=== PATIENT | male | born 1960 | race Caucasian/White ===

== ENCOUNTER 2017-04-20 21:43 | Emergency (ER) | payer OTHER ==
[~2017-04-20] VITALS: Ht 167.6 cm; Wt 92.0 kg
[~2017-04-20 21:43] MED LIST: ALBU8I INH; MOTR200T PO; OMEP20TA39 PO; PROM25TA5 PO; RANI150 PO; ZOFR4TAB3 PO
[2017-04-20 21:44] VITALS: BP 152/103; PULSE 94; RESP 16; TEMP 98.6; O2SAT 96
[2017-04-20] MEDS ORDERED: SIMV10TA PO (23:50)
[2017-04-21] MEDS ORDERED: RESP: ALBUTEROL 2.5 MG/IPRATROPIUM 0.5 MG NEB (SCH) NEB ONE
--- NOTE | 2017-04-21 00:10 | PD ---
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 NO ALLEVIATING FACTORS, AGGRAVATED BY MOVEMENT PFSH Past Medical History Arthritis: No Asthma: Yes Autoimmune Disease: No Blood Disorders: No Anxiety: Yes Depression: No Heart Rhythm Problems: No Cancer: No Cardiovascular Problems: Yes High Cholesterol: Yes Chest Pain: No Congestive Heart Failure: No COPD: Yes Cerebrovascular Accident: No Diabetes: No Diminished Hearing: No Endocrine: No Gastrointestinal Disorders: Yes (gastroparesis, PANCREATITIS) GERD: Yes Glaucoma: No Genitourinary: No Headaches: No Hepatitis: Yes (HEP 1977) Hiatal Hernia: No Hypertension: No Immune Disorder: No Implanted Vascular Access Dvce: No Kidney Stones: No Musculoskeletal: No Neurologic: No Psychiatric: Yes Respiratory: Yes Myocardial Infarction: No Renal Failure: Yes Seizures: No Sleep Apnea: No Thyroid Disease: No Ulcer: No PNEUMOCCOCAL Vaccine (Year): 2 Past Surgical History Abdominal Surgery: No AICD: No Appendectomy: Yes () Cardiac Surgery: No Ear Surgery: No Eye Surgery: No Genitourinary Surgery: No Gynecologic Surgery: No Oral Surgery: No Pacemaker: No Thoracic Surgery: No Other Surgery: Yes Social History Alcohol Use: No (QUIT 2012) Tobacco Use: Yes (1 PPD) Substance Use: No Allergies-Medications (Allergen,Severity, Reaction): Coded Allergies: lactose (Unverified Allergy, Severe, Nausea/Vomiting, 04/20/17) Reported Meds & Prescriptions Reported Meds & Active Scripts Active Ventolin Hfa (Albuterol Sulfate) 8 Gm Aero 2 Puff INH BID * SHAKE WELL BEFORE USE * Reported Simvastatin 10 Mg Tab 10 Mg PO DAILY Review of Systems Except as stated in HPI: all other systems reviewed are Neg Musculoskeletal: Positive: Myalgias, Cramping Physical Exam Narrative GENERAL: SKIN: Warm and dry. HEAD: Atraumatic. Normocephalic. EYES: Pupils equal and round. No scleral icterus. No injection or drainage. ENT: No nasal bleeding or discharge. Mucous membranes pink and moist. NECK: Trachea midline. No JVD. CARDIOVASCULAR: Regular rate and rhythm. RESPIRATORY: No accessory muscle use. Clear to auscultation. Breath sounds equal bilaterally. GASTROINTESTINAL: Abdomen soft, non-tender, nondistended. MUSCULOSKELETAL: Extremities without clubbing, cyanosis, or edema. No obvious deformities. NEUROLOGICAL: Awake and alert. No obvious cranial nerve deficits. Motor grossly within normal limits. Five out of 5 muscle strength in the arms and legs. Normal speech. PSYCHIATRIC: Appropriate mood and affect; insight and judgment normal. Data Data Last Documented VS Vital Signs Date Time Temp Pulse Resp B/P (MAP) Pulse Ox O2 Delivery O2 Flow Rate FiO2 04/21/17 00:16 97 21 04/20/17 21:44 98.6 94 16 152/103 (119) Room Air Orders Orders Complete Blood Count With Diff (04/20/17 23:50) Comprehensive Metabolic Panel (04/20/17 23:50) Creatine Kinase (Cpk) (04/20/17 23:50) Lipase (04/20/17 23:50) Thyroid Stimulating Hormone (04/20/17 23:50) Chest, Single Ap (04/20/17 23:50) Sodium Chlor 0.9% 1000 Ml Inj (Ns 1000 M (04/21/17 00:00) Albuterol-Ipratropium Neb (Duoneb Neb) (04/21/17 00:00) Ondansetron Odt (Zofran Odt) (04/21/17 00:30) Electrocardiogram (04/21/17 00:29) Ckmb (Isoenzyme) Profile (04/21/17 00:29) Troponin I (04/21/17 00:29) Lipase (04/21/17 00:29) CKMB (04/20/17 23:24) CKMB% (04/20/17 23:24) Troponin I (04/21/17 02:49) Sodium Chlor 0.9% 1000 Ml Inj (Ns 1000 M (04/21/17 03:15) Basic Metabolic Panel (Bmp) (04/21/17 04:05) CKMB (04/21/17 04:05) CKMB% (04/21/17 04:05) Sodium Chlor 0.9% 1000 Ml Inj (Ns 1000 M (04/21/17 06:00) Labs Laboratory Tests Test 04/20/17 23:24 04/21/17 04:05 White Blood Count 13.8 TH/MM3 Red Blood Count 5.80 MIL/MM3 Hemoglobin 17.4 GM/DL Hematocrit 50.2 % Mean Corpuscular Volume 86.6 FL Mean Corpuscular Hemoglobin 30.0 PG Mean Corpuscular Hemoglobin Concent 34.7 % Red Cell Distribution Width 13.7 % Platelet Count 310 TH/MM3 Mean Platelet Volume 9.0 FL Neutrophils (%) (Auto) 77.8 % Lymphocytes (%) (Auto) 15.2 % Monocytes (%) (Auto) 5.5 % Eosinophils (%) (Auto) 0.6 % Basophils (%) (Auto) 0.9 % Neutrophils # (Auto) 10.7 TH/MM3 Lymphocytes # (Auto) 2.1 TH/MM3 Monocytes # (Auto) 0.8 TH/MM3 Eosinophils # (Auto) 0.1 TH/MM3 Basophils # (Auto) 0.1 TH/MM3 CBC Comment DIFF FINAL Differential Comment Blood Urea Nitrogen 40 MG/DL 35 MG/DL Creatinine 3.23 MG/DL 2.18 MG/DL Random Glucose 154 MG/DL 152 MG/DL Total Protein 10.0 GM/DL Albumin 5.0 GM/DL Calcium Level 10.1 MG/DL 8.2 MG/DL Alkaline Phosphatase 123 U/L Aspartate Amino Transf (AST/SGOT) 25 U/L Alanine Aminotransferase (ALT/SGPT) 38 U/L Total Bilirubin 0.7 MG/DL Sodium Level 137 MEQ/L 141 MEQ/L Potassium Level 4.7 MEQ/L 4.1 MEQ/L Chloride Level 99 MEQ/L 107 MEQ/L Carbon Dioxide Level 26.9 MEQ/L 26.0 MEQ/L Anion Gap 11 MEQ/L 8 MEQ/L Estimat Glomerular Filtration Rate 20 ML/MIN 31 ML/MIN Total Creatine Kinase 312 U/L 244 U/L Creatine Kinase MB 3.7 NG/ML 2.7 NG/ML Creatine Kinase MB % 1.2 % Troponin I LESS THAN 0.02 NG/ML LESS THAN 0.02 NG/ML Lipase 115 U/L 91 U/L Thyroid Stimulating Hormone 3rd Gen 2.360 uIU/ML MDM Medical Decision Making Medical Screen Exam Complete: Yes Emergency Medical Condition: Yes Medical Record Reviewed: Yes Differential Diagnosis DEHYDRATION V RHABDO V RENAL DZ Narrative Course PATIENT WAS FOUND IN PRERENAL AZOTEMIA FROM DEHYDRATION, WHICH RESPONDED WELL TO IVF HYDRATION. ADVISED TO REST AND HYDRATE AND NOT WORK FOR AT LEAST THE NEXT 36HRS AND TO INSTEAD CONTINUE HYDRATING. AND PATIENT AWARE OF RECCOMENDATIONS AND WILL FOLLOW IT. Diagnosis Primary Impression: Dehydration, moderate Additional Impression: Prerenal azotemia Patient Instructions: Dehydration (ED), General Instructions Disposition: 01 DISCHARGE HOME Condition: Stable Hermilo Forte MD Apr 21, 2017 00:10
[2017-04-21 00:16] VITALS: O2SAT 97
[2017-04-21] MEDS ORDERED: ONDANSETRON ODT 4 MG TAB PO ONE (00:30)
--- NOTE | 2017-04-21 00:44 | RADRPT ---
EXAM DATE/TIME: 04/21/2017 00:25 [facility] COMPARISON: CHEST SINGLE AP, March 12, 2016, 14:18. INDICATIONS : Short of breath. MEDICAL HISTORY : Chronic obstructive pulmonary disease. SURGICAL HISTORY : None. ENCOUNTER: Initial ACUITY: 1 day PAIN SCORE: 0/10 LOCATION: Bilateral chest FINDINGS: A single view of the chest demonstrates the lungs to be symmetrically aerated without evidence of mas s, infiltrate or effusion. The cardiomediastinal contours are unremarkable. Osseous structures are intact. CONCLUSION: No acute disease. Joao Gee MD on April 21, 2017 at 0:40 Board Certified Radiologist. This report was verified electronically.
[2017-04-21 00:55] LABS: AUTOMATED NEUTROPHIL # 10.7 TH/MM3 (1.8-7.7); BASOPHIL # 0.1 TH/MM3 (0-0.2); BASOPHIL % 0.9 % (0.0-2.0); EOSINOPHIL # 0.1 TH/MM3 (0-0.4); EOSINOPHIL % 0.6 % (0.0-4.0); HEMATOCRIT 50.2 % (39.0-51.0); HEMO FLAGS DIFF FINAL; LYMPH % 15.2 % (9.0-44.0); LYMPHOCYTE # 2.1 TH/MM3 (1.0-4.8); MEAN CELL VOLUME 86.6 FL (80.0-100.0); MEAN CORPUSCULAR HGB CONC 34.7 % (32.0-36.0); MONO % 5.5 % (0.0-8.0); NEUT % 77.8 % (16.0-70.0); PLATELET COUNT 310 TH/MM3 (150-450); RED CELL DISTRIBUTION WIDTH 13.7 % (11.6-17.2); WHITE BLOOD COUNT 13.8 TH/MM3 (4.0-11.0)
[2017-04-21 00:57] LABS: ANION GAP 11 MEQ/L (5-15); AST (GOT) 25 U/L (15-37); BICARBONATE 26.9 MEQ/L (21.0-32.0); BLOOD UREA NITROGEN 40 MG/DL (7-18); CHLORIDE 99 MEQ/L (98-107); GLOMERULAR FILTRATION RATE 20 ML/MIN (>89); POTASSIUM 4.7 MEQ/L (3.5-5.1); SODIUM (NA) 137 MEQ/L (136-145)
[2017-04-21 01:08] LABS: ALKALINE PHOSPHATASE 123 U/L (45-117); ALT (GPT) 38 U/L (12-78); CREATINE KINASE 312 U/L (39-308); TOTAL BILIRUBIN ADULT 0.7 MG/DL (0.2-1.0)
[2017-04-21 01:20] LABS: CKMB 3.7 NG/ML (0.5-3.6)
[2017-04-21] MEDS ORDERED: SODIUM CHLOR 0.9% 1000 ML INJ 1,000 ML IV ONE ×3 (03:15→06:00)
[2017-04-21 04:37] LABS: ANION GAP 8 MEQ/L (5-15); BLOOD UREA NITROGEN 35 MG/DL (7-18); CHLORIDE 107 MEQ/L (98-107); CREATINE KINASE 244 U/L (39-308); GLOMERULAR FILTRATION RATE 31 ML/MIN (>89); POTASSIUM 4.1 MEQ/L (3.5-5.1); SODIUM (NA) 141 MEQ/L (136-145)
[2017-04-21 05:03] LABS: CKMB 2.7 NG/ML (0.5-3.6)
[2017-04-21 07:18] VITALS: BP 150/80; PULSE 80; RESP 18; O2SAT 97
[2017-04-21] MEDS ORDERED: PROM25TA10 PO (08:03)
--- NOTE | 2017-04-21 17:08 | EKG ---
Date Performed: 04/21/2017 Time Performed: 01:14:26 PTAGE: 56 years EKG: Sinus rhythm NONSPECIFIC T-WAVE ABNORMALITY BORDERLINE ECG Since PREVIOUS TRACING , no significant change noted PREVIOUS TRACIN03/12/2016 14.17 DOCTOR: Nereida Rocha Interpretating Date/Time 04/21/2017 17:07:35
== END 2017-04-21 08:36 | disposition home or self-care (01) ==
LOC: NEPE 21:43
DX: E86.0 Dehydration (principal); R79.89 Other specified abnormal findings of blood chemistry; R25.2 Cramp and spasm; R94.31 Abnormal electrocardiogram [ECG] [EKG]; J44.9 Chronic obstructive pulmonary disease, unspecified; E78.00 Pure hypercholesterolemia, unspecified; K31.84 Gastroparesis; K85.90 Acute pancreatitis without necrosis or infection, unspecified; K21.9 Gastro-esophageal reflux disease without esophagitis
CPT/HCPCS: 71010; 80048; 80053; 82550; 82552; 83690; 84443; 84484; 85025; 93005; 94664; 99285; J7030

== ENCOUNTER 2017-04-23 08:22 | Emergency (ER) | payer OTHER ==
[~2017-04-23] VITALS: Ht 167.6 cm; Wt 90.0 kg
[~2017-04-23 08:22] MED LIST changes: -MOTR200T PO; -OMEP20TA39 PO; +PROM25TA10 PO; -PROM25TA5 PO; -RANI150 PO; +SIMV10TA PO; -ZOFR4TAB3 PO
[2017-04-23 08:23] VITALS: BP 128/95; PULSE 74; RESP 15; TEMP 99.2; O2SAT 99
[2017-04-23] MEDS ORDERED: SODIUM CHLOR 0.9% 1000 ML INJ 1,000 ML IV ONE ×2 (08:56)
[2017-04-23] MEDS ORDERED: ONDANSETRON HCL 4 MG/2 ML VIAL IV PUSH ONE (09:00)
[2017-04-23] MEDS ORDERED: SODIUM CHLORIDE 0.9% FLUSH 10 ML FLUSH IVF PRN (09:00)
--- NOTE | 2017-04-23 09:04 | PD ---
HPI . Vomiting Chief Complaint: GI Complaint Time Seen by Provider: 08:49 Travel History International Travel<30 days: No Contact w/Intl Traveler<30days: No Traveled to known affect area: No History of Present Illness HPI This patient presents with a chief complaint of persistent vomiting. The patient reports that he was seen here on 04/21 for same is diagnosed with dehydration and acute kidney failure. He states that he was treated with IV fluids and subsequently discharged home. Despite this, his emesis has persisted. He estimates that he has had 10-12 bottles of water since his discharge 2 days ago and that he is vomited each time he drank a bottle of water. He reports decreased urinary output. He states that his vomiting is now associated with some mild mid abdominal pain which she feels is secondary to the active vomiting. Patient reports that he is actually had intermittent problems like this for years. At his initial presentation 2 days ago, his symptoms were felt to be secondary to heat exhaustion. He works as a manager shift. He has not been working the past couple of days but his symptoms have persisted. PFSH Past Medical History Arthritis: No Asthma: Yes Autoimmune Disease: No Blood Disorders: No Anxiety: Yes Depression: No Heart Rhythm Problems: No Cancer: No Cardiovascular Problems: Yes High Cholesterol: Yes Chest Pain: No Congestive Heart Failure: No COPD: Yes Cerebrovascular Accident: No Diabetes: No Diminished Hearing: No Endocrine: No Gastrointestinal Disorders: Yes (gastroparesis, PANCREATITIS) GERD: Yes Glaucoma: No Genitourinary: No Headaches: No Hepatitis: Yes (HEP 1977) Hiatal Hernia: No Hypertension: No Immune Disorder: No Implanted Vascular Access Dvce: No Kidney Stones: No Musculoskeletal: No Neurologic: No Psychiatric: Yes Respiratory: Yes Myocardial Infarction: No Renal Failure: Yes Seizures: No Sleep Apnea: No Thyroid Disease: No Ulcer: No Tetanus Vaccination: Unknown Influenza Vaccination: Yes PNEUMOCCOCAL Vaccine (Year): 2 ?: Not Past Surgical History Abdominal Surgery: No AICD: No Appendectomy: Yes () Cardiac Surgery: No Ear Surgery: No Eye Surgery: No Genitourinary Surgery: No Gynecologic Surgery: No Oral Surgery: No Pacemaker: No Thoracic Surgery: No Other Surgery: Yes Social History Alcohol Use: No (QUIT 2012) Tobacco Use: No (QUIT A YEAR AGO) Substance Use: No Allergies-Medications (Allergen,Severity, Reaction): Coded Allergies: lactose (Unverified Allergy, Severe, Nausea/Vomiting, 04/20/17) Reported Meds & Prescriptions Reported Meds & Active Scripts Active Phenergan (Promethazine HCl) 25 Mg Tablet 25 Mg PO Q6H PRN Ventolin Hfa (Albuterol Sulfate) 8 Gm Aero 2 Puff INH BID * SHAKE WELL BEFORE USE * Reported Simvastatin 10 Mg Tab 10 Mg PO DAILY Review of Systems Except as stated in HPI: all other systems reviewed are Neg General / Constitutional: No: Fever, Chills Gastrointestinal: Positive: Nausea, Vomiting, Abdominal Pain, No: Diarrhea Genitourinary: Positive: Decreased Urinary Output Physical Exam Narrative GENERAL: This patient is awake and alert and does not appear to be in any acute distress. SKIN: warm/dry. No rashes. HEAD: Normocephalic. Atraumatic. EYES: Pupils equal and round. No scleral icterus. No injection or drainage. ENT: No nasal bleeding or discharge. Mucous membranes pink and moist. NECK: Trachea midline. Full range of motion without pain.. CARDIOVASCULAR: Regular rate and rhythm. Heart sounds are normal. RESPIRATORY: No accessory muscle use. Clear to auscultation. Breath sounds equal bilaterally. GASTROINTESTINAL: Abdomen soft. Nontender. Bowel sounds present. Nondistended. MUSCULOSKELETAL: No obvious deformities. NEUROLOGICAL: Awake and alert. No obvious cranial nerve deficits. Motor grossly within normal limits. Normal speech. PSYCHIATRIC: Appropriate mood and affect; insight and judgment normal. Data Data Last Documented VS Vital Signs Date Time Temp Pulse Resp B/P (MAP) Pulse Ox O2 Delivery O2 Flow Rate FiO2 04/23/17 08:50 18 04/23/17 08:23 99.2 74 128/95 (106) 99 Orders Orders Complete Blood Count With Diff (04/23/17 08:56) Basic Metabolic Panel (Bmp) (04/23/17 08:56) Iv Access Insert/Monitor (04/23/17 08:56) Ondansetron Inj (Zofran Inj) (04/23/17 09:00) Sodium Chlor 0.9% 1000 Ml Inj (Ns 1000 M (04/23/17 08:56) Sodium Chlor 0.9% 1000 Ml Inj (Ns 1000 M (04/23/17 08:56) Sodium Chloride 0.9% Flush (Ns Flush) (04/23/17 09:00) Prochlorperazine Inj (Compazine Inj) (04/23/17 10:00) Diphenhydramine Inj (Benadryl Inj) (04/23/17 10:00) Labs Laboratory Tests Test 04/23/17 09:05 04/23/17 09:45 Blood Urea Nitrogen 16 MG/DL Creatinine 1.10 MG/DL Random Glucose 100 MG/DL Calcium Level 9.1 MG/DL Sodium Level 135 MEQ/L Potassium Level 4.1 MEQ/L Chloride Level 99 MEQ/L Carbon Dioxide Level 25.8 MEQ/L Anion Gap 10 MEQ/L Estimat Glomerular Filtration Rate 69 ML/MIN White Blood Count 10.9 TH/MM3 Red Blood Count 4.70 MIL/MM3 Hemoglobin 13.9 GM/DL Hematocrit 41.0 % Mean Corpuscular Volume 87.3 FL Mean Corpuscular Hemoglobin 29.7 PG Mean Corpuscular Hemoglobin Concent 34.0 % Red Cell Distribution Width 13.3 % Platelet Count 188 TH/MM3 Mean Platelet Volume 8.7 FL Neutrophils (%) (Auto) 86.2 % Lymphocytes (%) (Auto) 10.1 % Monocytes (%) (Auto) 2.7 % Eosinophils (%) (Auto) 0.5 % Basophils (%) (Auto) 0.5 % Neutrophils # (Auto) 9.4 TH/MM3 Lymphocytes # (Auto) 1.1 TH/MM3 Monocytes # (Auto) 0.3 TH/MM3 Eosinophils # (Auto) 0.1 TH/MM3 Basophils # (Auto) 0.1 TH/MM3 CBC Comment DIFF FINAL Differential Comment MDM Medical Decision Making Medical Screen Exam Complete: Yes Emergency Medical Condition: Yes Medical Record Reviewed: Yes (patient was seen here on 04/21. Initial BUN and creatinine were 40/3.23. Repeat BUN and creatinine following fluid resuscitation was 35/2.18. His most recent BUN/creatinine on 03/12/16 was 11/ 1.15.) Differential Diagnosis Differential diagnosis includes but is not limited to viral gastritis, food poisoning, pancreatitis, pneumonia, hepatitis, acute coronary syndrome, Narrative Course This patient presents with persistent vomiting. He was seen here 2 days agowith acute renal failure. He continues to vomit and continues to have poor urinary output. I will recheck his BMP and CBC. I have ordered 2 L of fluid for him. I suspect that he will need to be admitted for observation till his BUN and creatinine normalize and he stops vomiting. BMP Diagram 04/23/17 09:05 Calcium Level 9.1 BUN and creatinine have markedly improved. CBC Diagram 04/23/17 09:45 This patient did have further emesis following Zofran. He was subsequently given Compazine and Benadryl and has had no further emesis since then. He is now resting comfortably. Diagnosis Primary Impression: Persistent vomiting Patient Instructions: Acute Nausea and Vomiting (DC), General Instructions Additional Instructions: Zantac as directed for the next several days until your stomach problems have completely resolved. Try Zofran first for nausea. If this does not work, use a Phenergan suppository. Med/Other Pt SpecificInfo: Prescription(s) given Scripts Ondansetron Odt (Zofran Odt) 4 Mg Tab 4 MG SL Q6HR Y for Nausea/Vomiting, #30 TAB 0 Refills Prov: Latisha Blevins MD 04/23/17 Ranitidine (Zantac) 150 Mg Tab 150 MG PO DAILY for Reduce Stomach Acid, #30 TAB 0 Refills Prov: Latisha Blevins MD 04/23/17 Promethazine Supp (Phenergan Supp) 50 Mg Supp 50 MG RECTAL Q6H Y for NAUSEA OR VOMITING, #10 SUPP 0 Refills Prov: Latisha Blevins MD 04/23/17 Disposition: 01 DISCHARGE HOME Condition: Stable Latisha Blevins MD Apr 23, 2017 09:04
[2017-04-23] MEDS ORDERED: PROCHLORPERAZINE INJ 10 MG/2 ML VIAL IV PUSH ONE (10:00)
[2017-04-23] MEDS ORDERED: diphenhydrAMINE HCL 50 MG/ML VIAL IV PUSH ONE (10:00)
[2017-04-23 10:08] LABS: BICARBONATE 25.8 MEQ/L (21.0-32.0); POTASSIUM 4.1 MEQ/L (3.5-5.1)
[2017-04-23 10:14] LABS: AUTOMATED NEUTROPHIL # 9.4 TH/MM3 (1.8-7.7); BASOPHIL # 0.1 TH/MM3 (0-0.2); BASOPHIL % 0.5 % (0.0-2.0); EOSINOPHIL # 0.1 TH/MM3 (0-0.4); EOSINOPHIL % 0.5 % (0.0-4.0); HEMO FLAGS DIFF FINAL; LYMPH % 10.1 % (9.0-44.0); LYMPHOCYTE # 1.1 TH/MM3 (1.0-4.8); MEAN CELL VOLUME 87.3 FL (80.0-100.0); MEAN CORPUSCULAR HEMOGLOBIN 29.7 PG (27.0-34.0); MONO % 2.7 % (0.0-8.0); NEUT % 86.2 % (16.0-70.0); PLATELET COUNT 188 TH/MM3 (150-450); RED CELL DISTRIBUTION WIDTH 13.3 % (11.6-17.2); WHITE BLOOD COUNT 10.9 TH/MM3 (4.0-11.0)
[2017-04-23] MEDS ORDERED: ZOFR4TAB3 SL (11:16)
[2017-04-23] MEDS ORDERED: ZANT150T2 PO (11:16)
[2017-04-23] MEDS ORDERED: PROM1SUP8 RECTAL (11:16)
== END 2017-04-23 11:58 | disposition home or self-care (01) ==
LOC: NEPC 08:22
DX: R11.10 Vomiting, unspecified (principal); N17.9 Acute kidney failure, unspecified; F41.9 Anxiety disorder, unspecified; E78.00 Pure hypercholesterolemia, unspecified; J44.9 Chronic obstructive pulmonary disease, unspecified; K85.90 Acute pancreatitis without necrosis or infection, unspecified; K31.84 Gastroparesis; K21.9 Gastro-esophageal reflux disease without esophagitis; Z79.899 Other long term (current) drug therapy
CPT/HCPCS: 80048; 85025; 96361; 96374; 96375; 99284; J0780; J1200; J2405; J7030